=== PATIENT | male | born 1955 | race Hispanic/Latino ===

== ENCOUNTER 2016-12-30 08:41 | Outpatient (CLI) | payer OTHER ==
[2016-12-30 09:32] LABS: Blood Urea Nitrogen 4 mg/dL (9-20)
--- NOTE | 2016-12-30 12:38 | Cat Scan Report ---
CT ABDOMEN AND PELVIS WITH CONTRAST INDICATION: Malignant neoplasm of prostate. COMPARISON: None similar. FINDINGS: Abdomen and pelvis CT performed following oral contrast and intravenous administration of 100 cc of Omnipaque 300. LUNG BASES: Increased AP chest diameter/COPD. No effusions. Nonspecific distal esophageal wall prominence/thickening, not excluded for gastroesophageal reflux and/or hiatal hernia, amongst others. ABDOMEN: Liver, spleen, gallbladder, pancreas, adrenals, IVC, kidneys and opacified bowel within normal limits. Normal appendix. Usual colonic stool. Nonaneurysmal abdominal aorta with atherosclerotic aortoiliac calcifications. No ascites or size significant adenopathy. PELVIS: Approximately 4 cm AP x 3.7 cm transverse prostate indents the bladder base, more so on the left and also demonstrates an intrinsic 2 x 1.4 cm slightly hypodense focus, axial series 4, image 71. Tiny prostatic calcification and small pelvic phlebolith. Urinary bladder suboptimally distended, though otherwise grossly unremarkable. Few distal descending colon and sigmoid diverticuli without acute complication. No free fluid or significant adenopathy. Diffuse, innumerable bony metastases noted throughout the imaged spine, pelvis, ribs and proximal femur. Mild degenerative spurring as well, greatest lower thoracic-upper lumbar. CONCLUSION: 1. An enlarged prostate with possible intrinsic hypodense lesion/mass and diffuse bony metastases, as described. 2. Few other incidental findings, as above. Thank you for the opportunity to participate in this patient's care.
--- NOTE | 2016-12-31 14:31 | Nuclear Medicine Report ---
Whole body bone scan: Prostate cancer. Following injection of radionuclide whole-body imaging is obtained at 3 hours. There is a good bone to background ratio. There is minimal activity identified in the kidneys with some activity in the bladder. Comparison is made to the prior exam in December 2014. Multiple foci of increased activity are seen throughout the ribs bilaterally. Couple of foci of increased uptake are identified in the proximal femora posteriorly. Foci of increased activity are identified in 3 adjacent vertebra in the lower thoracic region on the right and one area on the left. Couple scattered foci are seen in the anterior view of the skull bilaterally. A focally intense area of uptake is identified in the right ischium and questionably in the left ischio acetabular junction. Or suspicious areas of increased uptake are also seen in both SI joint regions and mid sacrum. There are to technical differences between the current scan and the prior scan but the only current abnormalities apparent on the prior scan are in the right ischium and mid sacrum. There is also less renal activity on the current study. Impressions: The findings are highly suspicious for diffuse metastatic disease. The relatively small amount of renal activity is also suspicious for representing a SuperScan.
== END 2016-12-30 08:42 | disposition home or self-care (01) ==
LOC: NM 08:41
PROVIDERS: ATTEND Internal Medicine Hematology & Oncology
DX: C79.51 Secondary malignant neoplasm of bone (principal); C61 Malignant neoplasm of prostate; I70.0 Atherosclerosis of aorta; I87.8 Other specified disorders of veins; N42.89 Other specified disorders of prostate; K57.30 Diverticulosis of large intestine without perforation or abscess without bleeding; N40.0 Benign prostatic hyperplasia without lower urinary tract symptoms; Z79.899 Other long term (current) drug therapy
CPT/HCPCS: 36415; 74177; 78306; 82565; 84520; A9503; Q9967